=== PATIENT | male | born 1965 | race Caucasian/White ===

== ENCOUNTER 2022-04-26 12:44 | Emergency (ER) | payer MEDICAID, SELFPAY ==
[2022-04-26 13:38] VITALS: BP 161/106; PULSE 67; RESP 16; TEMP 36.4; O2SAT 97; BMI 38.0
--- NOTE | 2022-04-26 15:34 | ED_ITS ---
HPI - Nausea/Vomiting/Diarrhea General: Chief complaint: Nausea/Vomiting/Diarrhea Stated complaint: severe diarrhea/sternum/abdominal cramping Time Seen by Provider: 04/26/22 15:33 History of Present Illness: 57-year-old male patient comes in today with complaints of diarrhea. Patient reports diarrhea for the last 5 days. Patient does have occasional diarrhea but this episode is lasted longer than his usual. Patient reports minimal to no pain. Patient appears nontoxic. Patient appears in no acute distress. Patient does have a history of diabetes mellitus, hypertension, and hyper cholesteremia. Patient reports about 4 weeks ago he did have a tick bite in which he was treated for with antibiotics. Patient is also had multiple tick bites since then. Associated symtoms: Denies chest pain Review of Systems General: Reports: 10 or more systems reviewed and unremarkable except in HPI and below Const: Denies: fever(s) Card: Denies: chest pain Resp: Denies: dyspnea GI: Reports: diarrhea : Denies: difficulty urinating Musc: Denies: back pain Skin/Breast: Denies: rash Physical Exam Const: COMMON NORMALS: alert HENMT: HEAD & SCALP: normal to inspection Neck/C-Spine: COMMON NORMALS: full ROM Resp: COMMON NORMALS: normal respiratory effort Cardio: COMMON NORMALS: regular rate RATE: regular rate GI: COMMON NORMALS: Soft to palpation AUSCULTATION: Yes Hyperactive bowel sounds present PALPATION: Yes Soft to palpation and No Tenderness to palpation present (GI) Back/Pelvis: THORACIC SPINE/UPPER BACK: Yes normal to inspection LUMBAR SPINE/LOWER BACK: Yes normal to inspection Extremity: COMMON NORMALS: normal to inspection Neuro: SENSORIUM/ORIENTATION: Yes alert Skin: NARRATIVE SKIN EXAM: Patient show me some healing tick bites with no significant abnormalities. Course Vital Signs: Vital signs: Vital Signs Temperature 97.6 F 04/26/22 13:38 Pulse Rate 88 04/26/22 16:22 Respiratory Rate 14 04/26/22 16:22 Blood Pressure 179/93 04/26/22 16:22 Pulse Oximetry 97 04/26/22 16:22 MDM - Nausea/Vomiting/Diarrhea Medical Decision Making 57-year-old male patient comes in with diarrhea for last 5 days. Patient reports stools are watery. On exam abdomen soft nontender. Some hyperactive bowel sounds are noted. When questioning the patient he reports that he routinely will get diarrhea for 2 to 3 days but this time it has lasted longer. Differential diagnosis includes gastroenteritis, colitis, diverticulosis, functional diarrhea. Vital signs are normal, CBC CMP were unremarkable. Believe the patient probably has a functional diarrhea most likely. I recommended the patient use loperamide to help with the diarrhea and take Metamucil to add bulk to the stool. Discussed with patient need to replace electrolytes with electrolyte solution like Pedialyte or a no sugar Gatorade. Gave red flags for such as high fever or blood in the stool for reevaluation. Patient reported understanding and agreed to plan. Lab Data : 04/26/22 16:20 04/26/22 15:30 Laboratory Results WBC 9.3 10^3/uL (4.0-10.0) 04/26/22 16:20 Corrected WBC Cancelled 04/26/22 15:30 RBC 5.03 10^6/uL (4.1-5.3) 04/26/22 16:20 Hgb 15.4 g/dL (11.7-16.6) 04/26/22 16:20 Hct 45.4 % (42.0-52.0) 04/26/22 16:20 MCV 90.3 fl (80-94) 04/26/22 16:20 MCH 30.6 pg (28.0-34.0) 04/26/22 16:20 MCHC 33.9 g/dL (30.0-36.0) 04/26/22 16:20 RDW 13.9 % (12.1-15.1) 04/26/22 16:20 Plt Count 224 10^3/cmm (130-400) 04/26/22 16:20 MPV 10.6 fL (7.4-10.4) H 04/26/22 16:20 Gran % Cancelled 04/26/22 15:30 Neut % (Auto) 64.6 % 04/26/22 16:20 Lymph % (Auto) 23.8 % 04/26/22 16:20 Loving % (Auto) 9.0 % 04/26/22 16:20 Eos % (Auto) 1.6 % 04/26/22 16:20 Baso % (Auto) 0.8 % 04/26/22 16:20 Neut # (Auto) 5.99 10^3/uL (1.8-7.7) 04/26/22 16:20 Lymph # (Auto) 2.2 10^3/uL (0.8-4.8) 04/26/22 16:20 Loving # (Auto) 0.8 10^3/uL (0.2-0.9) 04/26/22 16:20 Eos # (Auto) 0.2 10^3/uL (0.0-0.8) 04/26/22 16:20 Baso # (Auto) 0.1 10^3/uL (0.0-0.1) 04/26/22 16:20 Absolute Gran (auto) Cancelled 04/26/22 15:30 Nucleated RBC % (auto) 0 % 04/26/22 16:20 Nucleated RBCs # 0.0 /100WBC 04/26/22 16:20 Sodium 138 mmol/L (136-145) 04/26/22 15:30 Potassium 4.3 mmol/L (3.5-5.1) 04/26/22 15:30 Chloride 101 mmol/L (98-107) 04/26/22 15:30 Carbon Dioxide 26 mmol/L (22-29) 04/26/22 15:30 Anion Gap 15.3 (5-19) 04/26/22 15:30 BUN 17 mg/dL (6-20) 04/26/22 15:30 Creatinine 0.7 mg/dL (0.7-1.2) 04/26/22 15:30 GFR Calculation 115.4 mL/min (90-130) 04/26/22 15:30 Glucose 139 mg/dL (65-115) H 04/26/22 15:30 Calculated Osmolality 290 mOsm/kg (285-295) 04/26/22 15:30 Calcium 9.7 mg/dL (8.5-10.5) 04/26/22 15:30 Total Bilirubin 0.4 mg/dL (0.15-1.2) 04/26/22 15:30 AST 23 U/L (0-40) 04/26/22 15:30 ALT 38 U/L (0-41) 04/26/22 15:30 Alkaline Phosphatase 56 IU/L (40-130) 04/26/22 15:30 Total Protein 7.7 g/dL (6.6-8.7) 04/26/22 15:30 Albumin 4.8 g/dL (3.5-5.2) 04/26/22 15:30 Globulin 2.9 g/dL (1.3-4.6) 04/26/22 15:30 Discharge Plan Discharge Patient Disposition: Home Clinical Impression: Diarrhea in adult patient Condition: Stable Prescriptions: New Metamucil 3.4 gram/5.4 gram powder 1 tbsp PO TID Qty: 660 0RF Rx Instructions: mix into at least 8 oz of water or juice before administering loperamide 2 mg capsule 2 mg PO Q4H PRN (Reason: loose stool) Qty: 20 0RF Rx Instructions: do not exceed 16 mg per 24 hrs Discharge Orders: Discharge ED (Routine); Ordered 04/26/22 Ordered By: Tristen Real Referrals: Terrie Ng PA [Primary Care Provider] - Discharge Diet: Usual diet Discharge Activity: Increase activity as tolerated Patient Instructions: Chronic Diarrhea (ED) Activity Restrictions/Additional Instructions: Use medication as directed. While continuing to have diarrhea make sure to use some electrolyte solution like Pedialyte, low sugar Gatorade 8 ounces 3 times a day until diarrhea subsides. Use loperamide 2 mg capsules 1 every 4 hours after each diarrhea stool. Take Metamucil 1 tablespoon in 8 ounces of water 3 times a day to help add bulk to the stool. Monitor for fever greater than 100.4, or blood in the stool. If you have a fever or blood in the stool you should follow-up for reevaluation. Otherwise, follow-up with primary care as needed. Coding Level of Care Code ED Desktop Support Manager for Chg Fwd Exam Comprehensive
[2022-04-26 16:01] LABS: Alanine Aminotransferase 38 U/L (0-41); Albumin Level 4.8 g/dL (3.5-5.2); Alkaline Phosphatase 56 IU/L (40-130); Aspartate Amino Transferase 23 U/L (0-40); Blood Urea Nitrogen 17 mg/dL (6-20); Calcium 9.7 mg/dL (8.5-10.5); Carbon Dioxide 26 mmol/L (22-29); Chloride 101 mmol/L (98-107); Globulin 2.9 g/dL (1.3-4.6); Glomerular Filtration Rate 115.4 mL/min (90-130); Glucose 139 mg/dL (65-115); Osmolality Calculated 290 mOsm/kg (285-295); Sodium 138 mmol/L (136-145); Total Bilirubin 0.4 mg/dL (0.15-1.2); Total Protein 7.7 g/dL (6.6-8.7)
[2022-04-26 16:22] VITALS: BP 179/93; PULSE 88; RESP 14; O2SAT 97
[2022-04-26] MEDS: sodium chloride 0.9% 1,000 ML 999 ML IV (16:22)
[2022-04-26 16:25] LABS: Basophils # 0.1 10^3/uL (0.0-0.1); Basophils % 0.8 %; Eosinophils # 0.2 10^3/uL (0.0-0.8); Eosinophils % 1.6 %; Hematocrit 45.4 % (42.0-52.0); Hemoglobin 15.4 g/dL (11.7-16.6); Lymphocytes # 2.2 10^3/uL (0.8-4.8); Lymphocytes % 23.8 %; Mean Corpuscular HGB Conc 33.9 g/dL (30.0-36.0); Mean Corpuscular Hemoglobin 30.6 pg (28.0-34.0); Mean Corpuscular Volume 90.3 fl (80-94); Mean Platelet Volume 10.6 fL (7.4-10.4); Monocytes # 0.8 10^3/uL (0.2-0.9); Neutrophils # 5.99 10^3/uL (1.8-7.7); Neutrophils % 64.6 %; Nucleated Red Blood Cells % 0 %; Platelet Count 224 10^3/cmm (130-400); Red Blood Count 5.03 10^6/uL (4.1-5.3); Red Cell Distribution Width 13.9 % (12.1-15.1); White Blood Count 9.3 10^3/uL (4.0-10.0)
[2022-04-26 16:25] LABS: Anion Gap 15.3 (5-19); Potassium 4.3 mmol/L (3.5-5.1)
[2022-04-26] MEDS: loperamide 2 mg Capsule 4 MG PO (17:23)
[2022-04-28 13:07] LABS: Lyme AB Screen <0.90 index
[2022-05-01 21:49] LABS: E. Chaffeensis AB IGG <1:64; E. Chaffeensis AB IGM <1:20
[2022-05-02 18:19] LABS: RMSF IGG NOT DETECTED; RMSF IGM NOT DETECTED
== END 2022-04-26 17:24 | disposition home or self-care (01) ==
PROVIDERS: Emergency Provider Nurse Practitioner Family; PCP Physician Assistant
DX: R19.7 Diarrhea, unspecified (principal); T14.8XXA Other injury of unspecified body region, initial encounter; W57.XXXA Bitten or stung by nonvenomous insect and other nonvenomous arthropods, initial encounter
CPT/HCPCS: 80053; 85025; 86618; 86666; 86757; 96360; 99283; J7030

== ENCOUNTER 2022-06-13 17:24 | Emergency (ER) | payer MEDICAID, SELFPAY ==
[2022-06-13 18:24] VITALS: BP 186/100; PULSE 72; RESP 16; TEMP 36.9; O2SAT 98; BMI 38.0
--- NOTE | 2022-06-13 19:12 | XRR_ITS ---
PROCEDURE INFORMATION: Exam: XR Left Hip Exam date and time: 06/13/2022 7:49 PM Age: 57 years old Clinical indication: Injury or trauma; Fall; Blunt trauma (contusions or hematomas); Left; Hip TECHNIQUE: Imaging protocol: Radiologic exam of the Left hip. Views: 2 or 3 views hip with pelvis when performed. COMPARISON: CR (PELVIS, ) 06/13/2022 7:45 PM FINDINGS: Bones/joints: Unremarkable. No acute fracture. Soft tissues: Unremarkable. XR/XR hip LT 2-3V wo/w pel* [id number] IMPRESSION: No acute findings.
--- NOTE | 2022-06-13 19:12 | XRR_ITS ---
PROCEDURE INFORMATION: Exam: XR Pelvis Exam date and time: 06/13/2022 7:45 PM Age: 57 years old Clinical indication: Injury or trauma; Fall; Blunt trauma (contusions or hematomas); Left; Pelvic region TECHNIQUE: Imaging protocol: Radiologic exam of the pelvis. Views: 1 or 2 view. COMPARISON: No relevant prior studies available. FINDINGS: Bones/joints: Unremarkable. No acute fracture. Soft tissues: Unremarkable. XR/XR pelvis 1-2V* [id number] IMPRESSION: No acute findings.
--- NOTE | 2022-06-13 19:31 | XRR_ITS ---
PROCEDURE INFORMATION: Exam: XR Right Knee Exam date and time: 06/13/2022 7:52 PM Age: 57 years old Clinical indication: Injury or trauma; Fall; Blunt trauma; Knee; Right TECHNIQUE: Imaging protocol: Radiologic exam of the Right knee. Views: 3 views. COMPARISON: No relevant prior studies available. FINDINGS: Bones/joints: Normal. Soft tissues: Normal. XR/XR knee RT 3V* [id number] IMPRESSION: No acute findings.
--- NOTE | 2022-06-13 19:32 | W.ED.FALL ---
HPI - Fall General: Chief Complaint: Fall Stated Complaint: Fall, Hip pain Time Seen by Provider: 06/13/22 19:20 Source: patient Mode of arrival: wheelchair Limitations: no limitations History of Present Illness: Patient is a 57-year-old male who presents to ED today with a complaint of left hip and right knee pain that he sustained earlier today after falling. Patient states he was throwing logs/stumps to a pit when he lost his footing and fell and tumbled down a hill. Patient denies striking his head or LOC. He has no neck or back pain. Patient has been ambulatory since the fall. complaint: fall Onset (ago): hour(s) Fall from: standing Fall witnessed: no Place fall occurred: home Loss of consciousness: None Prolonged down time: no Symptoms prior to fall: none Context: tripped/slipped Location of injury - extremities: Right: knee Associated symptoms-after fall: Reports no associated symptoms; Denies abdominal pain, chest pain, difficulty walking, headache(s), hematuria or neck pain Review of Systems Const: Denies: fever(s), chills, body aches, fatigue or malaise Card: Denies: chest pain Resp: Denies: dyspnea GI: Denies: abdominal pain : Denies: flank pain or hematuria Musc: Reports: joint pain (R knee, L hip); Denies: neck pain, back pain, extremity pain, extremity swelling, joint swelling, joint redness, joint warmth or limited range of motion Neuro: Denies: headache(s), numbness in extremities, weakness in extremities, sensory changes, difficulty walking or dizziness Physical Exam Const: COMMON NORMALS: no acute distress, patient oriented x3, no limitations and alert GENERAL APPEARANCE: cooperative NUTRITIONAL APPEARANCE: obese ORIENTATION/CONSCIOUSNESS: Yes awake, Yes oriented to person, Yes oriented to place and Yes oriented to time HENMT: COMMON NORMALS: normocephalic and atraumatic HEAD & SCALP: normal to inspection, normocephalic and atraumatic FACE & SINUS: normal facial exam Eye: GENERAL EYE: appearance normal, both eyes and all related structures Neck/C-Spine: COMMON NORMALS: full ROM CERVICAL SPINE: Yes cervical ROM normal, No pain with cervical ROM, No Cervical spine tenderness, No step off deformity and No Paracervical muscle tenderness Chest: COMMONS NORMALS: normal inspection of the chest and normal palpation of entire chest wall Resp: COMMON NORMALS: normal respiratory effort and clear to auscultation bilaterally AUSCULTATION: clear to auscultation bilaterally Cardio: COMMON NORMALS: regular rate and regular rhythm RATE: regular rate RHYTHM: regular rhythm Back/Pelvis: COMMON NORMALS: thoracic and lumbar spine normal to inspection, no thoracic nor lumbar tenderness and thoraco-lumbar ROM normal Extremity: COMMON NORMALS: normal to inspection, full ROM and capillary refill normal GENERAL: Yes normal exam except as noted RIGHT LOWER EXTREMITY: Yes knee joint (TTP anterior knee; mild abrasion; no obvious swelling; no deformity) Right knee: Yes ROM (normal) and Yes neurovascular exam (normal) LEFT LOWER EXTREMITY: Yes hip joint (TTP L PSIS; no signs of trauma/injury; pt ambulatory) Left hip: Yes neurovascular exam (nomal) Neuro: CRISTAL COMA SCALE: document GCS findings Cristal coma scale eye opening: Spontaneous Adell coma scale verbal response: Orientated Adell coma scale motor response: Obey commands Cristal coma scale total score: 15 COMMON NORMALS: patient oriented x3, moves all extremities, no focal motor deficits and no sensory deficits noted SENSORIUM/ORIENTATION: Yes alert, Yes oriented to person, Yes oriented to place and Yes oriented to time Skin: TRAUMA: no lacerations Course Vital Signs: Vital signs: Vital Signs Temperature 98.5 F 06/13/22 18:24 Pulse Rate 72 06/13/22 18:24 Respiratory Rate 16 06/13/22 18:24 Blood Pressure 186/100 06/13/22 18:24 Pulse Oximetry 98 06/13/22 18:24 Oxygen Delivery Me thod 06/13/22 18:24 MDM - Fall Medical Decision Making XRs negative. Patient is ambulatory w/o difficulty. He is stable for DC at this time. Lab Data Radiology Impressions Hip/Pelvis X-Ray 06/13/22 19:12 IMPRESSION: No acute findings. Pelvis X-Ray 06/13/22 19:12 IMPRESSION: No acute findings. Knee X-Ray 06/13/22 19:31 IMPRESSION: No acute findings. Discharge Plan Discharge Patient Disposition: Home Clinical Impression: Acute pain of left hip Fall Qualifiers: Encounter type: initial encounter Qualified Code(s): W19.XXXA - Unspecified fall, initial encounter Pain in right knee Qualifiers: Chronicity: acute Qualified Code(s): M25.561 - Pain in right knee Condition: Stable Prescriptions: New Celebrex 100 mg capsule 100 mg PO BID Qty: 14 0RF No Action Metamucil 3.4 gram/5.4 gram powder 1 tbsp PO TID Qty: 660 0RF Rx Instructions: mix into at least 8 oz of water or juice before administering loperamide 2 mg capsule 2 mg PO Q4H PRN (Reason: loose stool) Qty: 20 0RF Rx Instructions: do not exceed 16 mg per 24 hrs Discharge Orders: Discharge ED (Routine); Ordered 06/13/22 Ordered By: Hortencia Brantley Referrals: Terrie Ng PA [Primary Care Provider] - Coding Level of Care Code ED Linux Vmware Administrator for Chg Fwd Exam Comprehensive
[2022-06-13] MEDS: ketorolac 60 mg/2 mL INJ IM (20:35)
== END 2022-06-13 20:35 | disposition home or self-care (01) ==
PROVIDERS: Emergency Provider Physician Assistant; PCP Physician Assistant
DX: M25.552 Pain in left hip (principal); M25.561 Pain in right knee; W17.81XA Fall down embankment (hill), initial encounter
CPT/HCPCS: 72170; 73502; 73562; 96372; 99284; J1885

== ENCOUNTER 2022-10-29 14:00 | Outpatient (CLI) | payer MEDICAID, SELFPAY ==
--- NOTE | 2022-10-29 14:24 | ECG_ITS ---
[facility] Test Date: 2022-10-29 Pat Name: Cole Clark Department: Room: Gender: Male Medical Imaging Technician: : 1965 Requested By: Abe Krueger Order Number: [id number] Hansel MD: Da Stanton M.D. Measurements Intervals [place] Rate: 63 P: 42 MO: 184 QRS: -18 QRSD: 98 T: 41 QT: 413 QTc: 424 Interpretive Statements SINUS RHYTHM MODERATE VOLTAGE CRITERIA FOR LVH, CONSIDER NORMAL VARIANT [MEETS CRITERIA IN ONE OF: R(aVL), S(V1), R(V5), R(V5/V6)+S(V1)] No previous ECG available for comparison Electronically Signed On 10-29-2022 18:27:51 TIP SCOURER by Da Stanton M.D. [email or web address]
== END 2022-10-29 14:01 | disposition home or self-care (01) ==
LOC: RT 14:03
PROVIDERS: PCP Physician Assistant; Visit Provider Specialist
DX: R09.81 Nasal congestion (principal); I49.8 Other specified cardiac arrhythmias
CPT/HCPCS: 93005